=== PATIENT | male | born 1965 | race Caucasian/White ===

== ENCOUNTER 2017-06-25 15:56 | Outpatient (CLI) | payer BC ==
[~2017-06-25 15:56] MED LIST: Iopamidol 370 76% 100 ML VIAL ONE
== END 2017-06-25 15:57 | disposition home or self-care (01) ==
LOC: BICCT 15:56
PROVIDERS: ATTEND Family Medicine
DX: R91.1 Solitary pulmonary nodule (principal); R91.8 Other nonspecific abnormal finding of lung field
CPT/HCPCS: 71260

== ENCOUNTER 2017-11-12 15:58 | Outpatient (CLI) | payer BC ==
--- NOTE | 2017-11-12 19:02 | MRI ---
MRI LUMBAR SPINE NONCONTRAST: 11/12/17 HISTORY: Low back pain with radiculopathy. FINDINGS: Conus medullaris has a normal appearance. There is disc space narrowing and mild posterior disc bulge at the T11-12 level of the lower thoracic spine. T12-L1: Osteophytosis. Central canal and neural foramina are patent. L1-2: Mild posterior disc bulge and circumferential degenerative changes. Mild stenosis of the centra l canal. L2-3: Desiccation of the disc. Posterior disc bulge and circumferential degenerative changes. Mild st enosis of the central canal. Moderate right and mild left foraminal stenoses. L3-4: Mild disc bulge. Circumferential degenerative changes. Mild stenosis of the central canal and e ach neural foramen. L4-5: Minimal degenerative spondylolisthesis. Posterior disc bulge with circumferential degenerative changes. Severe stenosis of the central canal and each neural foramen. L5-S1: Mild posterior central disc protrusion. Thecal sac is patent. degenerative changes of the face ts. Moderate bilateral foraminal stenoses. IMPRESSION: Degenerative changes throughout the lumbar spine as detailed above. Central canal and foraminal steno ses are most severe at the L4-5 level. POS: [facility]
--- NOTE | 2017-11-12 19:13 | RAD ---
RADIOGRAPH LUMBAR SPINE 3 VIEWS: 11/12/17 HISTORY: 52-year-old male with "M54.17, lumbosacral radiculitis." TECHNIQUE: Three lateral views in flexion, extension, and neutral. No AP view. FINDINGS: Review of CT of lumbar spine of 07/01/15 demonstrates five standard lumbar type vertebrae. Vertebral b marya heights are maintained. Slight grade I anterolisthesis of L4 on L5 due to degenerative facet dise ase at that level. No instability between flexion and extension. No high grade disc space narrowing. Mild narrowing of the posterior aspect of the L5-S1 disc space. IMPRESSION: 1. Mild grade I anterolisthesis of L4 on L5 due to facet osteoarthrosis. 2. No instability. 3. At least mild discogenic degenerative changes at L5-S1. JN [] POS: [facility]
== END 2017-11-12 15:59 | disposition home or self-care (01) ==
LOC: MRI 15:58
PROVIDERS: ATTEND Specialist
DX: M47.27 Other spondylosis with radiculopathy, lumbosacral region (principal); M47.896 Other spondylosis, lumbar region; M43.16 Spondylolisthesis, lumbar region; M48.061 Spinal stenosis, lumbar region without neurogenic claudication; M99.83 Other biomechanical lesions of lumbar region
CPT/HCPCS: 72100; 72148

== ENCOUNTER 2018-02-28 17:13 | Outpatient (CLI) | payer BC ==
[2018-02-28 17:37] LABS: Mean Corpuscular HGB CONC 35.3 g/dL (32.0-36.0); Mean Corpuscular Volume 96.3 fL (78.0-98.0); Mean Platelet Volume 8.5 fL (7.4-10.4); Platelet Count 263 thou/uL (130-400); RBC Distribution Width 11.5 % (11.5-14.5); Red Blood Cell (RBC) Count 4.72 mill/uL (4.70-6.10); White Blood Cell (WBC) Count 7.9 thou/uL (4.8-10.8)
[2018-02-28 17:44] LABS: Prothrombin Time 12.9 SEC (12.0-14.7)
[2018-02-28 18:04] LABS: Anion Gap 10 mmol/L (10-20); BUN (Urea Nitrogen) 9 mg/dL (8.9-20.6); Calc. Creatinine Clearance 0 mL/min (70-130); Calcium 9.5 mg/dL (7.8-10.44); Carbon Dioxide 27 mmol/L (22-29); Chloride 103 mmol/L (98-107); Estimated GFR-MDRD 67; Potassium 3.7 mmol/L (3.5-5.1); Sodium 136 mmol/L (136-145)
[2018-02-28 18:25] LABS: Glucose 83 mg/dL (70-105)
--- NOTE | 2018-03-01 22:37 | EKG ---
Test Reason : Blood Pressure : / mmHG Vent. Rate : 078 BPM Atrial Rate : 078 BPM P-R Int : 162 ms QRS Dur : 118 ms QT Int : 390 ms P-R-T Axes : 052 114 006 degrees QTc Int : 444 ms Normal sinus rhythm Low voltage QRS Incomplete right bundle branch block Left posterior fascicular block Cannot rule out Anterior infarct , age undetermined Abnormal ECG When compared with ECG of 04-OCT-2015 01:00, Vent. rate has decreased BY 45 BPM T wave inversion less evident in Inferior leads T wave inversion no longer evident in Lateral leads Confirmed by OSITO HUERTA, DR. Song ([id number]) on 03/01/2018 10:37:02 PM Referred By: SHAKILA Confirmed By:DR. Nohemi MCNEILL MD
== END 2018-02-28 17:14 | disposition home or self-care (01) ==
LOC: LABBT 17:13
PROVIDERS: ATTEND Surgery
DX: Z01.818 Encounter for other preprocedural examination (principal); M54.16 Radiculopathy, lumbar region; M48.061 Spinal stenosis, lumbar region without neurogenic claudication
CPT/HCPCS: 80048; 85027; 85610; 85730; 93005; 93010

== ENCOUNTER 2018-03-12 07:21 | Day surgery (SDC) | payer BC ==
[2018-03-12] MEDS ORDERED: Clindamycin/D5W 900 mg/50 ml Premix Bag ONE (07:42)
[2018-03-12] MEDS ORDERED: Levofloxacin 500 mg/D5W 100 ml Premix Bag ONE (07:42)
[2018-03-12] MEDS ORDERED: Fentanyl 100 MCG/2 ML VIAL ONE ×2 (08:09→10:05)
[2018-03-12] MEDS ORDERED: Thrombin 5000 UNITS/5 ML VIAL ONE (09:33)
[2018-03-12] MEDS ORDERED: Sodium Chloride 0.9% 10 ML ONE (09:33)
[2018-03-12] MEDS ORDERED: Bacitracin Zinc Ointment 30 gm TUBE ONE (09:33)
[2018-03-12] MEDS ORDERED: Meperidine HCl/PF 25 MG/ML VIAL SLOW IVP PRN (10:02)
[2018-03-12] MEDS ORDERED: Ondansetron HCl/PF 4 MG/2 ML Vial IVP PRN (10:02)
[2018-03-12] MEDS ORDERED: PACU-Morphine 4MG/ML VIAL SLOW IVP PRN (10:02)
[2018-03-12] MEDS ORDERED: HYDROmorphone 2 MG/ML VIAL SLOW IVP PRN (10:02)
[2018-03-12] MEDS ORDERED: Promethazine HCl 25 MG/ML VIAL SLOW IVP PRN (10:02)
[2018-03-12] MEDS ORDERED: Morphine Sulfate 2 MG/ML SYRINGE SLOW IVP PRN (10:02)
[2018-03-12] MEDS ORDERED: Promethazine HCl 25 MG/ML VIAL IM PRN ×2 (10:02→11:18)
[2018-03-12] MEDS ORDERED: Mag-Al 1200 mg/1200 mg/30 ML UDCUP PO PRN (11:18)
[2018-03-12] MEDS ORDERED: Milk Of Magnesia 30 ML UDCUP PO PRN (11:18)
[2018-03-12] MEDS ORDERED: traMADol HCl 50 MG TAB PO PRN (11:18)
[2018-03-12] MEDS ORDERED: Bisacodyl 10 MG SUPP PR PRN (11:18)
[2018-03-12] MEDS ORDERED: Acetaminophen 325 MG TAB PO PRN (11:18)
[2018-03-12] MEDS ORDERED: Fleet Enema 133 ML BOT PR PRN (11:18)
[2018-03-12] MEDS ORDERED: HYDROmorphone 2 MG/ML VIAL ONE (11:21)
[2018-03-12] MEDS ORDERED: Promethazine HCl 25 MG/ML VIAL ONE (11:53)
[2018-03-12] MEDS: Morphine 4 MG/ML VIAL SLOW IVP PRN ×2 (15:01→19:53)
[2018-03-12] MEDS: Sodium Chloride 0.9% 1,000 ML IV SCH (15:02)
[2018-03-12 15:13] VITALS: BMI 36.3
[2018-03-12] MEDS: Clindamycin/D5W 900 MG in Premix Bag 1 BAG IVPB SCH ×2 (15:45→23:31)
[2018-03-12] MEDS: Acetaminophen/Codeine 30-300mg Tablet PO PRN ×2 (15:45→18:34)
[2018-03-12] MEDS: tiZANidine HCl 4 MG TAB PO PRN ×2 (16:07→23:36)
[2018-03-12] MEDS ORDERED: Ketorolac Tromethamine 30 MG/ML VIAL ONE (17:09)
[2018-03-12] MEDS ORDERED: Lidocaine 1% PF 5 ML VIAL ONE (17:09)
[2018-03-12] MEDS ORDERED: Glycopyrrolate 0.2 MG/ML 5 ML SYRINGE ONE (17:09)
[2018-03-12] MEDS ORDERED: Ondansetron PF 4 MG/2 ML Vial ONE (17:09)
[2018-03-12] MEDS ORDERED: PHENYLEPHRINE-NS 100 MCG/ML 10 ML SYRINGE ONE (17:09)
[2018-03-12] MEDS ORDERED: PROPOFOL 200 MG/20 ML VIAL ONE (17:09)
[2018-03-12] MEDS ORDERED: Dexamethasone 20 MG/5 ML VIAL ONE (17:09)
--- NOTE | 2018-03-12 18:27 | OP ---
DATE OF PROCEDURE: 03/12/2018 OPERATING ROOM: OR11. [employer]: Good Braun PA-C. PREPROCEDURE DIAGNOSIS: L4-L5 stenosis with low back and leg pain. POSTPROCEDURE DIAGNOSIS: L4-L5 stenosis with low back and leg pain. PROCEDURES PERFORMED: L4-L5 laminectomy, partial facetectomy, and foraminotomies over the L4-L5 nerve roots. DESCRIPTION OF PROCEDURE: After informed consent was obtained from the patient, the patient was brought to OR11. Proper patient pause and identification were carried out. He was placed under excellent general endotracheal anesthesia and positioned prone on the OR table. All appropriate points were padded. We identified the L4 and L5 dorsal spines. A linear yvonne was made over this region. This area was sterilely cleansed, prepared, and draped. Proper patient pause and identification were carried out. The wound was then opened with a combination of sharp, monopolar, and blunt dissection. The L4 and L5 dorsal spines and lamina were exposed. Localization film confirmed our area of interest. We then performed L4-L5 laminectomy, partial facetectomy, and foraminotomies over the L4-L5 nerve roots with excellent decompression of the common dural tube and nerve roots. Copious irrigation occurred throughout, as did maximizing hemostasis. There was no spinal fluid leak. The wound was then closed in anatomic layers following sprinkling of vancomycin powder. The patient then emerged from anesthesia. Job ID: [id number]
[2018-03-12] MEDS: HYDROcodone/Acetaminophen 7.5/325 mg Tablet PO PRN (21:09)
[2018-03-13] MEDS: Sodium Chloride 0.9% 1,000 ML IV SCH (00:03)
[2018-03-13] MEDS: Acetaminophen/Codeine 30-300mg Tablet PO PRN ×2 (02:40→09:31)
[2018-03-13] MEDS: HYDROcodone/Acetaminophen 7.5/325 mg Tablet PO PRN (05:54)
[2018-03-13] MEDS: Morphine 4 MG/ML VIAL SLOW IVP PRN (06:08)
[2018-03-13] MEDS: tiZANidine HCl 4 MG TAB PO PRN (08:19)
[2018-03-13] MEDS ORDERED: Loratadine 10 MG TAB PO SCH (09:00)
[2018-03-13] MEDS ORDERED: Lisdexamfetamine Dimesylate [Vyvanse] 50 MG PO SCH (09:00)
--- NOTE | 2018-03-13 10:03 | PRG ---
DATE OF SERVICE: 03/13/2018 Mr. Ramírez is postoperative day 1 from L4-L5 laminectomy. He states his leg pain has resolved and he is sitting in a bedside chair with good strength. He is mobilizing and has met criteria for dismissal. We went over both intra and postoperative issues. We will arrange for dismissal. Job ID: [id number]
[2018-03-13 10:08] VITALS: BP 113/77; TEMP 98.2
== END 2018-03-13 10:20 | disposition home or self-care (01) ==
LOC: SDC 07:21 → SURG B 11:18 → UNDOADMOB 14:44 → SURG B 14:44 → SDC 14:44 → OBSVTOIN 14:44 → INTOOBSV 14:44 → SDC 03-13 10:20 → UNDODISOB 03-13 10:20
PROVIDERS: ATTEND Surgery
PROC: 01NB0ZZ Release Lumbar Nerve, Open Approach (ICD-10-PCS; principal; 2018-03-12)
DX: M48.061 Spinal stenosis, lumbar region without neurogenic claudication (principal); M54.16 Radiculopathy, lumbar region; Z88.0 Allergy status to penicillin; Z79.899 Other long term (current) drug therapy
CPT/HCPCS: 76001; 96374; 96375; 96376; G0378; J1100; J1170; J1885; J1956; J2001; J2270; J2405; J2550; J2704; J3010; J3370; J3490

== ENCOUNTER 2018-08-19 13:20 | Outpatient (CLI) | payer BC ==
--- NOTE | 2018-08-19 13:50 | RAD ---
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 Patient complains of low back pain r ating down right lower extremity. COMPARISON: 11/12/2017 FINDINGS: Vertebral body heights are within normal limits. Scattered osteophytes are seen anteriorly in the low er thoracic spine. No fracture is appreciated on provided lateral images. Again noted is grade 1 anterolisthesis of L4 on L5 with slight improvement in degree of listhesis on extension compared to f lexion. There is question of laminectomy defect at the L4-5 level. Clinical correlation is recommended. There is mild loss of intervertebral disc height at the lumbosacral junction. Facet dege nerative changes are seen in the lower lumbar spine. IMPRESSION: 1. Stable mild grade 1 anterolisthesis of L4 and L5. There is increase in the degree of listhesis on flexion compared to extension and neutral positioning. 2. Questionable laminectomy defect at the L4-5 level. 3. Mild degenerative changes at the lumbosacral junction.
--- NOTE | 2018-08-19 14:46 | MRI ---
MRI Lumbar Spine with and withoutcontrast: HISTORY: Intervertebral disc disorder with radiculopathy. COMPARISON: None. FINDINGS: Conus medullaris is normal in morphology and terminates at the L1 level. Posterior decompression is seen at L4-5 and L5-S1 levels. 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 L1-2:Broad-based disc bulge is present. Mild central canal stenosis. No high-grade foraminal compromi se. L2-3:Mild central canal stenosis with broad-based disc bulge. No high-grade foraminal stenosis on the left. There is mild right neural foraminal narrowing. L3-4:Mild narrowing of central canal due to disc bulge. Minimal narrowing of each neural foramen. L4-5:Broad-based disc osteophyte with bilateral moderate facet osteoarthritis present producing mild narrowing of the central canal as well as crowding of the bilateral L5 nerve roots within each subarticular zone. There is mild to moderate bilateral neural foraminal stenosis. L5-S1:Mild effacement of ventral thecal sac due to central disc protrusion, superimposed upon disc os teophyte complex. There is mild to moderate bilateral neural foraminal stenosis. Postcontrast imaging reveals posterior enhancing tissue indicative of postoperative fibrosis IMPRESSION: Postoperative lumbar spine with multilevel degenerative change, as delineated above. Transcribed Date/Time: 08/19/2018 2:59 PM
== END 2018-08-19 13:21 | disposition home or self-care (01) ==
LOC: SCSMRI 13:20
PROVIDERS: ATTEND Specialist
DX: M51.17 Intervertebral disc disorders with radiculopathy, lumbosacral region (principal); M47.27 Other spondylosis with radiculopathy, lumbosacral region; M47.26 Other spondylosis with radiculopathy, lumbar region; M43.16 Spondylolisthesis, lumbar region; Z98.890 Other specified postprocedural states
CPT/HCPCS: 72100; 72158

== ENCOUNTER 2020-01-01 12:00 | Outpatient (CLI) | payer BC ==
--- NOTE | 2020-01-01 15:04 | RAD ---
LUMBAR SPINE 4 VIEWS: Date: 01/01/2020 HISTORY: Lumbosacral radiculopathy. Low back pain. FINDINGS: Vertebral bodies maintain normal height. Mild loss of disc space at L5-S1. Mild anterolisthesis at L4 -5 which may correct slightly with extension. Minimal anterolisthesis at L5-S1 does not appear to sig nificantly change. Facet hypertrophy is prominent at L4-5 and l5-S1. Minimal spurring from the lumbar vertebra. IMPRESSION: Mild degenerative changes as described. POS: [facility]
== END 2020-01-01 12:01 | disposition home or self-care (01) ==
LOC: BICRAD 12:00
PROVIDERS: ATTEND Specialist
DX: M54.17 Radiculopathy, lumbosacral region (principal); M47.816 Spondylosis without myelopathy or radiculopathy, lumbar region
CPT/HCPCS: 72110

== ENCOUNTER 2023-03-15 14:16 | Outpatient (CLI) | payer BC | END 2023-03-15 14:17 | disposition home or self-care (01) | LOC: SCSMRI 14:16 | PROVIDERS: ATTEND Specialist | DX: M47.22 Other spondylosis with radiculopathy, cervical region (principal); M54.17 Radiculopathy, lumbosacral region; M96.1 Postlaminectomy syndrome, not elsewhere classified; M47.813 Spondylosis without myelopathy or radiculopathy, cervicothoracic region; M43.22 Fusion of spine, cervical region; M48.061 Spinal stenosis, lumbar region without neurogenic claudication; Z98.1 Arthrodesis status | CPT/HCPCS: 72141; 72158 ==